=== PATIENT | male | born 1995 | race Caucasian/White ===

== ENCOUNTER 2024-08-12 10:10 | Emergency (ER) | payer BC, OTHER ==
[2024-08-12 10:58] LABS: BASOPHILS ABSOLUTE AUTO 0.1 K/mm3 (0.0-0.2); BASOPHILS PERCENT AUTO 0.6 % (0.0-1.0); EOSINOPHILS ABSOLUTE AUTO 0.3 K/mm3 (0.0-0.4); EOSINOPHILS PERCENT AUTO 3.3 % (0.0-6.0); HEMATOCRIT 39.3 % (42.0-52.0); HEMOGLOBIN 13.6 gm/dl (14.0-18.0); IMMATURE GRAN ABSOLUTE AUTO 0.06 K/mm3 (0.00-0.05); IMMATURE GRAN PERCENT AUTO 0.7 % (0.0-0.4); LYMPHOCYTES ABSOLUTE AUTO 2.3 K/mm3 (1.0-4.8); MEAN CORPUSCULAR HEMOGLOBIN 27.8 pg (28.0-32.0); MEAN CORPUSCULAR HGB CONC 34.6 g/dl (32.0-36.0); MEAN CORPUSCULAR VOLUME 80.4 fl (83.0-99.0); MONOCYTES ABSOLUTE AUTO 0.8 K/mm3 (0.0-0.8); NEUTROPHILS ABSOLUTE AUTO 4.5 K/mm3 (1.8-7.7); NEUTROPHILS PERCENT AUTO 56.4 % (41.0-71.0); PLATELET COUNT,PLT 312 K/mm3 (150-400); RED BLOOD CELL COUNT 4.89 M/mm3 (4.52-5.90); WHITE BLOOD CELL COUNT,WBC 8.06 K/mm3 (3.9-11.3)
[2024-08-12 11:19] LABS: INR 0.98; PROTHROMBIN TIME 10.4 SECONDS (9.7-12.0)
[2024-08-12 11:21] LABS: PTT,PARTIAL THROMBOPLSTIN TIME 26.2 SECONDS (21.7-31.4)
[2024-08-12 11:33] LABS: A/G RATIO 1.4 (1-2); ALANINE AMINOTRANSFERASE,ALT 157 U/L (16-63); ALBUMIN 4.2 g/dl (3.4-5.0); ALKALINE PHOSPHATASE 74 U/L (46-116); ANION GAP 12.2 (5-15); ASPARTATE AMNIOTRANSFERASE,AST 65 U/L (15-37); BILIRUBIN TOTAL 0.8 mg/dL (0.2-1.0); BLOOD UREA NITROGEN,BUN 14 mg/dL (7-18); BUN/CREATININE RATIO 17.5 (14-18); CALCIUM 9.1 mg/dL (8.5-10.1); CARBON DIOXIDE,CO2 30 mEq/L (21-32); CHLORIDE,CL 98 mEq/L (98-107); CREATININE 0.8 mg/dL (0.7-1.3); EST CRCL DRUG DOSING (CG) 130.63 mL/min; ESTIMATED GFR 122 mL/min (>60); GLUCOSE RANDOM 107 mg/dL (70-99); PROTEIN TOTAL,TP 7.3 g/dl (6.4-8.2); SODIUM,NA 136 mEq/L (136-145)
[2024-08-12 11:35] LABS: POTASSIUM,K 4.2 mEq/L (3.5-5.1); TROPONIN I HIGH SENSITIVITY < 4 pg/mL (<=76)
[2024-08-12] MEDS: LORazepam 2 MG/ML SDV IVPUSH ONE (11:52)
[2024-08-12] MEDS: Iopamidol 755 Mg/ML 100 ML Bottle IVPUSH ONE (12:17)
[2024-08-12] MEDS: Sodium Chloride 0.9% 100 ML IV SCH (12:17)
[2024-08-12] MEDS: Sodium Chloride 0.9% 10 ML Syringe FLUSH PRN (12:17)
[2024-08-12 15:58] VITALS: BP 136/90; PULSE 89
== END 2024-08-12 13:50 ==
LOC: JD.ED 10:10
DX: R47.81 Slurred speech (principal); R53.1 Weakness; R51.9 Headache, unspecified; Z88.2 Allergy status to sulfonamides; Z88.8 Allergy status to other drugs, medicaments and biological substances; Z79.890 Hormone replacement therapy; Z79.899 Other long term (current) drug therapy
CPT/HCPCS: 36415; 70250; 70360; 70450; 70496; 70498; 71046; 74019; 80053; 82947; 84484; 85025; 85610; 85730; 93005; 96374; 99285; J2060; J3490; Q9967

== ENCOUNTER 2025-01-28 08:40 | Emergency (ER) | payer BC, OTHER ==
[2025-01-28] MEDS ORDERED: Sodium Chloride 0.9% 10 ML Syringe FLUSH PRN (08:42)
[2025-01-28] MEDS: Ondansetron 4 MG/2 ML SDV IVPUSH ONE (08:50)
[2025-01-28 09:00] LABS: BASOPHILS PERCENT AUTO 0.5 % (0.0-1.0); EOSINOPHILS ABSOLUTE AUTO 0.1 K/mm3 (0.0-0.4); EOSINOPHILS PERCENT AUTO 1.7 % (0.0-6.0); HEMATOCRIT 22.7 % (42.0-52.0); IMMATURE GRAN ABSOLUTE AUTO 0.05 K/mm3 (0.00-0.05); IMMATURE GRAN PERCENT AUTO 0.7 % (0.0-0.4); LYMPHOCYTES ABSOLUTE AUTO 1.5 K/mm3 (1.0-4.8); MEAN CORPUSCULAR HEMOGLOBIN 28.1 pg (28.0-32.0); MEAN CORPUSCULAR HGB CONC 32.2 g/dl (32.0-36.0); MEAN CORPUSCULAR VOLUME 87.3 fl (83.0-99.0); MONOCYTES ABSOLUTE AUTO 0.5 K/mm3 (0.0-0.8); NEUTROPHILS ABSOLUTE AUTO 5.3 K/mm3 (1.8-7.7); NEUTROPHILS PERCENT AUTO 70.1 % (41.0-71.0); PLATELET COUNT,PLT 323 K/mm3 (150-400); WHITE BLOOD CELL COUNT,WBC 7.55 K/mm3 (3.9-11.3)
[2025-01-28 09:03] LABS: HEMOGLOBIN 7.3 gm/dl (14.0-18.0)
[2025-01-28 09:19] LABS: INR 1.03; PROTHROMBIN TIME 10.9 SECONDS (9.7-12.0)
[2025-01-28 09:21] LABS: PTT,PARTIAL THROMBOPLSTIN TIME < 20.0 SECONDS (21.7-31.4)
[2025-01-28 09:34] LABS: A/G RATIO 1.2 (1-2); ALBUMIN 3.2 g/dl (3.4-5.0); BILIRUBIN TOTAL 1.1 mg/dL (0.2-1.0); BUN/CREATININE RATIO 25.5 (14-18); CALCIUM 8.5 mg/dL (8.5-10.1); CREATININE 1.1 mg/dL (0.7-1.3); EST CRCL DRUG DOSING (CG) 101.39 mL/min; POTASSIUM,K 3.9 mEq/L (3.5-5.1); PROTEIN TOTAL,TP 5.8 g/dl (6.4-8.2)
[2025-01-28] MEDS: Ondansetron 4 MG/2 ML SDV ONE (09:40)
[2025-01-28 09:45] LABS: ANION GAP 11.9 (5-15)
[2025-01-28] MEDS: Metoclopramide 10 MG/2 ML SDV IVPUSH ONE (09:47)
[2025-01-28] MEDS: HYDROmorphone 0.5 MG/0.5 ML Syringe IVPUSH ONE (09:47)
[2025-01-28 11:15] VITALS: BP 128/56; PULSE 69
== END 2025-01-28 12:13 ==
LOC: JD.ED 08:40
DX: R53.1 Weakness (principal); R51.9 Headache, unspecified; K29.71 Gastritis, unspecified, with bleeding; D64.89 Other specified anemias; Z88.8 Allergy status to other drugs, medicaments and biological substances; Z79.82 Long term (current) use of aspirin; Z79.899 Other long term (current) drug therapy
CPT/HCPCS: 36415; 36430; 80053; 84484; 85025; 85610; 85730; 86850; 86900; 86901; 86922; 93005; 96374; 96375; 99285; J2405; J2765; P9016; 93010